=== PATIENT | male | born 1950 | race Caucasian/White ===

== ENCOUNTER → 2018-11-15 | Outpatient (CLI) | payer MEDICARE ==
--- NOTE | 2018-11-15 11:39 | MR ---
EXAMINATION TYPE: MR cervical spine wo con DATE OF EXAM: 11/15/2018 COMPARISON: None HISTORY: Spinal Stenosis With Myelopathy / Hyperreflexia TECHNIQUE: Multiplanar, multisequence images of the cervical spine were acquired. C2-C3: Bilateral foraminal encroachment is present due to lateral extension endplate disc complex, ci rcumferential posterior extension of endplate disc complex causes only mild anterior mass effect on t he thecal sac. No significant central stenosis. C3-C4: Circumferential posterior extension of endplate disc complex causes mild anterior mass effect on the thecal sac. No significant central stenosis. Mild extension of endplate disc complex causes sl ight premature encroachment bilaterally. C4-C5: Posterior extension endplate disc complex causes anterior mass effect on the thecal sac but no significant central stenosis. No significant foraminal encroachment. C5-C6: Posterior extension of endplate disc complex causes mild to moderate central canal stenosis. L ateral extension endplate disc complex results in bilateral foraminal encroachment. C6-C7: , Axial image 14 C7-T1: No evident disc herniation. There are facet arthropathy changes. No significant central stenos is or foraminal encroachment. Hemangioma present at the superior endplate posteriorly at T2. Cervical segments are intact. There is normal alignment. Cervical spinal cord is remarkable for cor d increased signal on T2-weighted sequences at the ventral aspect of the cord to the left of midline. Craniovertebral junction relationships are within normal limits. There is multilevel spondylosis. Cervical vertebral bodies show preserved height and there is minimal retrolisthesis grade 1 C6-7, C4- 5. Loss of disc height present at the intervertebral levels especially C2-3, C5-6 and C6-7, and to a lesser extent C7-T1. Endplate discogenic marrow signal change especially at C5-6 and C6-7. IMPRESSION: Multilevel degenerative disc disease, spinal stenosis, foraminal encroachment, and possible gliosis a t the ventral aspect of the spinal cord as described at C6.
== END | disposition home or self-care (01) ==
LOC: RADMRIMAIN 09:49
PROVIDERS: ATTEND Psychiatry & Neurology Neurology
DX: M48.02 Spinal stenosis, cervical region (principal); M50.30 Other cervical disc degeneration, unspecified cervical region
CPT/HCPCS: 72141